=== PATIENT | male | born 1980 | race Caucasian/White ===

== ENCOUNTER 2019-04-24 12:56 | Emergency (ER) | payer OTHER ==
[2019-04-24] MEDS ORDERED: ONDANSETRON 4 MG/2 ML VIAL IVPUSH ONE (13:27)
[2019-04-24] MEDS ORDERED: ACETAMINOPHEN 1000 MG/100 ML VIAL (NON FORMULARY) IVPB ONE (13:27)
[2019-04-24] MEDS ORDERED: SODIUM CHLORIDE 0.9% 500 ML INFUS.BAG IV ONE (13:27)
--- NOTE | 2019-04-24 13:34 | PDOC ---
History of Present Illness - General Chief Complaint: Nausea/Vomiting Stated Complaint: NAUSEA/VOMITING Time Seen by Provider: 04/24/19 13:18 - History of Present Illness Initial Comments: Bradley Knapp is an otherwise healthy 38yo man who presents with multiple episodes of vomiting and watery diarrhea starting at 3am today. He says that he has severe diffuse abdominal pain as well. He has been trying to drink a lot of liquids including water, juice, and milk but has vomited everything up. He has not noted any bloody or bilious emesis. 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 He did get a flu shot this year. Prior to last night, he was feeling in his normal state of health. Past History - Past Medical History Allergies/Adverse Reactions: Allergies Allergy/AdvReac Type Severity Reaction Status Date / Time No Known Allergies Allergy Verified 04/24/19 17:09 Home Medications: Ambulatory Orders Ondansetron [Zofran *Odt*] 4 mg SL TID PRN #21 od.tablet 04/24/19 Review of Systems - Review of Systems Comments:: General: No fevers, no chills, no weight or appetite change, no malaise HEENT: No changes in vision, no changes in hearing, no congestion, no sore throat CV: No chest pain, no palpitations, no LE edema Pulm: No SOB, no cough, no wheezing GI: See HPI : No frequency, no urgency, no dysuria Musc: No back pain, no joint swelling, no recent injury Skin: No rash, no lesions, no erythema Endo: No excessive thirst, no heat/cold intolerance Heme: No unusual bruising or bleeding, no swollen glands Neuro: No syncope, no numbness/tingling, no focal weakness Vasc: No claudication Psych: No recent change in mood, no SI or HI *Physical Exam - Physical Exam General: Uncomfortable but in no acute distress HEENT: PERRL, EOMI, MMM, voice normal, normal neck ROM Cards: RRR, no murmur appreciated Pulm: Comfortable on room air, clear to auscultation bilaterally Abd: Soft, nondistended. Discomfort diffusely w/ palpation but no focal tenderness, no rigidity, no guarding Ext: Atraumatic. No LE edema. ROM intact. WWP Skin: Normal color, no rashes or lesions Neuro: A&Ox3, CN grossly intact, normal speech, motor/sensory grossly intact and symmetric Psych: Mood appropriate to situation ED Treatment Course - LABORATORY CBC & Chemistry Diagram: 04/24/19 13:30 04/24/19 13:30 Medical Decision Making - Medical Decision Making 04/24/19 13:34 Bradley Knapp is an otherwise healthy 38yo man who presents with multiple episodes of vomiting and watery diarrhea, now also with diffuse abdominal pain, starting at 3am today. 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 - Most likely viral, gastroenteritis v possible influenza as pt noted to be coughing in the ED. Possible pancreatitis, cholecystitis, appendicitis but difficult abdominal exam w/ diffuse discomfort. - CBC, CMP, lactate, lipase - Zofran, acetaminophen, IVF 04/24/19 15:32 - Leukocytosis to 20 - Chemistry pending. - May need CT depending on remainder of results - Additional IVF, reglan ordered for continued nausea. No additional vomiting while in the ED. Pt sleeping, wakes to report abdominal pain, back to sleep 04/24/19 17:05 - Chemistry with slight LFT elevation but normal bili. Lipase normal. No other significant abnormalities. Cr 1.2, no baseline, may be LOLI due to mild dehydration - Given continued pain, CT abd/pelvis ordered for additional evaluation 04/24/19 18:10 - called by CT, informed that pt had itching following administration of IV contrast - No respiratory symptoms - no SOB, no wheezing, no uvular swelling. 2 hives on upper torso, no other rash. - 25mg IV benadryl given. Will reassess - CT reviewed, mild bowel wall thickening but no focal pathology appreciated. Radiology report pending 04/24/19 18:59 - CT c/w enteritis - Updated pt and family. Pt feels better, wants to eat. - Will d/c home. Advised regarding home care, hydration, PMD follow up, return precautions. Pt states understanding and will follow up if needed Discussed with Dr Becki Zuluaga PGY2 Discharge - Discharge Information Problems reviewed: Yes Clinical Impression/Diagnosis: Nausea vomiting and diarrhea Condition: Poor Disposition: HOME - Admission No - Additional Discharge Information Prescriptions: Ondansetron [Zofran *Odt*] 4 mg SL TID PRN #21 od.tablet PRN Reason: Nausea And/Or Vomiting - Follow up/Referral Referrals: [facility] [place] [Provider Group] - Patient Discharge Instructions Patient Printed Discharge Instructions: DI for Viral Gastroenteritis -- Adult, Gastroenteritis Diet Additional Instructions: Discharge Instructions: You were seen in the emergency department for vomiting and diarrhea. You most likely have a viral infection called gastroenteritis ("stomach flu"). This will get better within a few days. Home Care; - Make sure you are drinking plenty of fluids while you are sick. Water, jello, applesauce, Pedialyte, soup are good options - Avoid a lot of sugary drinks. This can worsen diarrhea - Avoid dairy products, spicy foods, greasy/oily foods, alcohol and caffeine - It is OK if you do not feel like eating as long as you are staying hydrated. - Seek immediate care for worsening symptoms, dehydration, severe pain, blood in your vomit or diarrhea, or any other medical emergency. - Post Discharge Activity Work/Back to School Note: Back to Work
[2019-04-24] MEDS ORDERED: METOCLOPRAMIDE HCL INJECTION 10 MG/2 ML VIAL IVPUSH ONE (14:18)
--- NOTE | 2019-04-24 14:20 | PDOC ---
Attending Attestation - Resident Resident Name: DaousmaneIngrid - ED Attending Attestation I have performed the following: I have examined & evaluated the patient, The case was reviewed & discussed with the resident, I agree w/resident's findings & plan - HPI HPI: 04/24/19 14:20 38-year-old male with no significant medical history presenting with diffuse abdominal pain, nausea/vomiting x multiple episodes, nonbloody, since 3AM. 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 04/24/19 14:20 - Physicial Exam PE: 04/24/19 14:19 Agree with the resident's HPI and PE as documented in the electronic medical record. in mild distress 2/2 pain. EOMI, PERRL, nl conjunctiva, anicteric; neck supple. lungs clear, RRR, abdomen soft Diffusely tender no rebound, guarding. Back nontender. TORRES x4, no focal neuro deficits. No peripheral edema. normal color for ethnicity, WWP. - Medical Decision Making 04/24/19 14:21 Vital Signs Temp Pulse Resp BP Pulse Ox 97.9 F 70 18 121/81 100 04/24/19 15:35 04/24/19 15:35 04/24/19 15:35 04/24/19 15:35 04/24/19 15:35 Vital signs reviewed notable for initial tachycardia likely due to pain and vomiting. Differential diagnosis includes gastroenteritis, colitis, viral syndrome. Pancreatitis, hepatitis, PUD, gastritis, anemia, electrolyte/metabolic derangements Abdomen exam unremarkable, no peritoneal findings. Patient given IV fluids, Zofran and Reglan, Tylenol for pain control reassess. 04/24/19 15:36 labs and lytes with sig leukocytosis 20K remainder of labs/Cr function lytes normal LFTs/lipase normal VS on recheck normalized. no longer tachy, no hypotension nontoxic appearing Due to the persistent diffuse abdominal pain nausea and vomiting with diarrhea this is still most likely gastroenteritis however due to the significant leukocytosis of [address] abdomen to evaluate for appendicitis, diverticulitis, intra-abdominal infection/inflammation, perforation or obstructive process. 04/24/19 18:09 while in the ED, pt had itching with CT contrast, no e/o anaphylaxis, repeat BP wnl. given benadryl for allergic reaction, no PO contrast in the future due to allergy profile. 04/24/19 19:03 CT with acute enteritis, otherwise unremarkable study feels improved, rx zofran hydration and supportive care. Pt to be discharged in stable condition. Patient and family made aware of clinical impression, treatment recommendations and disposition plan, return precautions discussed (including but not limited to new or persistent/worsening symptoms, pain, fevers, or signs of infection, chest pain, respiratory distress , inability to tolerate oral intake, dehydration, syncope, or neurologic changes ). Follow up with PMD as recommended, follow up information provided, take medications as instructed for duration of time. continue with supportive care, avoid triggers and precipitants. All questions answered to patient's satisfaction and expressed understanding and comfort with this. At the time of discharge, the patient is alert, clinically improved, tolerating po and verbalizes understanding of instructions, satisfied with the care received and felt comfortable with the plan. Patient does not suffer from an acute life- threatening medical condition at this time and is safe for outpatient follow- up.
[2019-04-24 15:20] LABS: BASO % 0.1 % (0-2.0); EOS % 0.1 % (0-4.5); HEMOGLOBIN 17.2 GM/dL (11.7-16.9); LYMPH % 7.2 % (8-40); MCH 29.7 pg (25.7-33.7); MCHC 33.8 g/dl (32.0-35.9); MEAN CELL VOLUME 87.9 fl (80-96); MEAN PLT VOLUME 8.8 fl (7.5-11.1); MONO % 4.7 % (3.8-10.2); NEUT % 87.9 % (42.8-82.8); PLATELET COUNT 442 K/MM3 (134-434); RDW 13.4 % (11.9-15.9); WHITE BLOOD COUNT 20.9 K/mm3 (4.0-10.0)
[2019-04-24 15:35] VITALS: BMI 29.0
[2019-04-24 15:36] VITALS: BP 121/81; PULSE 70; TEMP 97.9
[2019-04-24 15:53] LABS: ALBUMIN 4.7 g/dl (3.4-5.0); BLOOD UREA NITROGEN 21.1 mg/dL (7-18); CREATININE 1.2 mg/dL (0.55-1.3); POTASSIUM 4.7 mmol/L (3.5-5.1)
== END 2019-04-24 19:35 | disposition home or self-care (01) ==
LOC: JER 12:56
PROC: 3E033NZ Introduction of Analgesics, Hypnotics, Sedatives into Peripheral Vein, Percutaneous Approach (ICD-10-PCS; principal; 2019-04-24)
PROC: 3E033GC Introduction of Other Therapeutic Substance into Peripheral Vein, Percutaneous Approach (ICD-10-PCS; 2019-04-24)
PROC: 3E033GC Introduction of Other Therapeutic Substance into Peripheral Vein, Percutaneous Approach (ICD-10-PCS; 2019-04-24)
PROC: 3E033GC Introduction of Other Therapeutic Substance into Peripheral Vein, Percutaneous Approach (ICD-10-PCS; 2019-04-24)
DX: K21.9 Gastro-esophageal reflux disease without esophagitis (principal)
CPT/HCPCS: 36415; 74177-TC; 80053; 83690; 83735; 85025; 99283-25; J0131; Q9967

== ENCOUNTER 2021-03-20 17:21 | Emergency (ER) | payer OTHER ==
[2021-03-20 17:50] VITALS: BMI 27.7
[2021-03-20] MEDS ORDERED: SODIUM CHLORIDE 0.9% 500 ML INFUS.BAG IV ONE (19:19)
[2021-03-20] MEDS ORDERED: FAMOTIDINE 20 MG/50 ML IVPB 20 MG/50 ML MG IVPB ONE ×2 (19:20→20:10)
[2021-03-20] MEDS ORDERED: ONDANSETRON 4 MG/2 ML VIAL IVPUSH ONE (19:20)
[2021-03-20] MEDS ORDERED: ACETAMINOPHEN 1000 MG/100 ML VIAL IVPB ONE (19:20)
[2021-03-20 19:47] LABS: BASO % 0.4 % (0-2.0); EOS % 0.6 % (0-4.5); HEMATOCRIT 45.6 % (35.4-49); HEMOGLOBIN 15.6 GM/dL (11.7-16.9); LYMPH % 24.5 % (8-40); MCH 30.3 pg (25.7-33.7); MCHC 34.1 g/dl (32.0-35.9); MEAN CELL VOLUME 88.9 fl (80-96); MEAN PLT VOLUME 8.2 fl (7.5-11.1); MONO % 19.8 % (3.8-10.2); NEUT % 54.7 % (42.8-82.8); PLATELET COUNT 286 10^3/uL (134-434); RBC 5.13 M/mm3 (4.00-5.60); RDW 13.9 % (11.9-15.9); WHITE BLOOD COUNT 7.2 K/mm3 (4.0-10.0)
[2021-03-20 19:58] LABS: CALCIUM 9.2 mg/dL (8.5-10.1)
[2021-03-20 19:59] LABS: BLOOD UREA NITROGEN 16.8 mg/dL (7-18)
[2021-03-20 20:03] LABS: CREATININE 0.9 mg/dL (0.55-1.3)
[2021-03-20 20:04] LABS: BILIRUBIN,TOTAL 0.3 mg/dL (0.2-1)
[2021-03-20] MEDS ORDERED: ACETAMINOPHEN INJECTION 100 ML IVPB ONE (20:10)
[2021-03-20] MEDS ORDERED: ONDANSETRON 4 MG/2 ML VIAL ONE (20:10)
[2021-03-20 22:14] VITALS: BP 117/55; PULSE 62; TEMP 98.3
[2021-03-20] MEDS ORDERED: DEXAMETHASONE LIQUID 0.5 MG/5 ML PO ONE (22:26)
[2021-03-20] MEDS ORDERED: AZITHROMYCIN 500 MG TABLET PO ONE (22:26)
[2021-03-20] MEDS ORDERED: AZITHROMYCIN 250 MG TABLET ONE (22:43)
[2021-03-20] MEDS ORDERED: DEXAMETHASONE SOD PHOSPHATE 10 MG/1 ML VIAL ONE (22:43)
== END 2021-03-20 23:01 | disposition home or self-care (01) ==
LOC: JER 17:21
PROC: 3E033GC Introduction of Other Therapeutic Substance into Peripheral Vein, Percutaneous Approach (ICD-10-PCS; principal; 2021-03-20)
DX: J06.9 Acute upper respiratory infection, unspecified (principal)
CPT/HCPCS: 36415; 71046-TC-FY; 80053; 85025; 87804; 87807; 99284-25; C9803; J0131; U0003; U0005